=== PATIENT | female | born 1990 | race Caucasian/White ===

== ENCOUNTER 2017-08-15 00:07 | Emergency (ER) | payer MEDICAID ==
[~2017-08-15] VITALS: Ht 165.1 cm; Wt 96.2 kg
[2017-08-15 01:27] LABS: Urine Bacteria FEW /hpf (None Seen); Urine Blood 2+ /uL (Negative); Urine Mucus FEW (None Seen); Urine Specific Gravity 1.009 (1.001-1.035); Urine WBC 14 /hpf (0 - 5)
[2017-08-15 01:43] LABS: Basophils # (auto) 0.1 uL; Basophils % (auto) 0.7 % (0.0-2.0); Eosinophils # (auto) 0.1 uL; Hematocrit 38.2 % (36.0-46.0); Hemoglobin 12.9 g/dL (12.2-16.2); Lymphocytes # (auto) 2.4 uL; Lymphocytes % (auto) 21.6 % (10.0-50.0); Mean Corpuscular Hemoglobin 30.6 pg (28.0-32.0); Mean Corpuscular Hgb Conc. 33.9 g/dL (32.0-36.0); Mean Corpuscular Volume 90.5 fL (80.0-100.0); Monocytes # (auto) 0.7 uL; Neutrophils # (auto) 7.9 uL; Neutrophils % (auto) 70.7 % (37.0-80.0); Platelet Count (auto) 286 10^3/uL (140-450); Red Blood Cells 4.22 10^6/uL (4.0-5.20); Red Cell Distribution Width 13.4 % (11.8-14.3); White Blood Cell 11.1 10^3/uL (4.4-10.8)
[2017-08-15 01:58] LABS: Albumin 3.5 g/dL (3.4-5.0); BUN/Creatinine Ratio 18.6; Calcium 8.3 mg/dL (8.5-10.1); Potassium 3.5 mmol/L (3.5-5.1)
[2017-08-15 02:01] LABS: Bilirubin, Total 0.4 mg/dL (0.2-1.0); Total Protein 7.1 g/dL (6.4-8.2)
[2017-08-15 04:53] VITALS: BP 111/64
[2017-08-15] MEDS ORDERED: NITROFURANTOIN (MONO) 100 mg CAP PO ONE ×2 (05:26→05:30)
== END 2017-08-15 05:45 | disposition home or self-care (01) ==
LOC: ER 00:10
DX: O20.8 Other hemorrhage in early pregnancy (principal); O23.41 Unspecified infection of urinary tract in pregnancy, first trimester; Z3A.01 Less than 8 weeks gestation of pregnancy
CPT/HCPCS: 36415; 76801; 80053; 81001; 84702; 85025; 94761; 99285; J7030

== ENCOUNTER 2020-06-16 01:52 | Emergency (ER) | payer MEDICAID ==
[~2020-06-16] VITALS: Ht 152.4 cm; Wt 104.3 kg
[2020-06-16 09:39] VITALS: BP 108/65
== END 2020-06-16 10:30 | disposition home or self-care (01) ==
LOC: ER 01:52
DX: U07.1 COVID-19 (principal); J12.89 Other viral pneumonia
CPT/HCPCS: 71045